=== PATIENT | male | born 1990 | race Hispanic/Latino ===

== ENCOUNTER 2018-03-05 14:28 | Emergency (ER) | payer SELFPAY ==
[2018-03-05] MEDS ORDERED: Ketorolac Tromethamine 60 MG/2 ML VIAL ONE (15:36)
--- NOTE | 2018-03-05 15:58 | RAD ---
CERVICAL SPINE 5 VIEWS: HISTORY: Neck injury. FINDINGS: Reversal of the normal lordotic curvature of the lower cervical spine. Vertebral body heights are ma intained. Mild osteophytosis. No acute fracture or dislocation. Cervicothoracic junction is intact . IMPRESSION: Degenerative changes. No acute osseous abnormalities are demonstrated. POS: [facility]
== END 2018-03-05 16:31 | disposition home or self-care (01) ==
LOC: ERS 14:28
DX: M54.2 Cervicalgia (principal); F17.210 Nicotine dependence, cigarettes, uncomplicated
CPT/HCPCS: 72050; 96372; J1885

== ENCOUNTER 2021-04-13 01:40 | Emergency (ER) | payer SELFPAY | END 2021-04-13 02:16 | disposition home or self-care (01) | LOC: ERS 01:40 | DX: T78.40XA Allergy, unspecified, initial encounter (principal); F17.290 Nicotine dependence, other tobacco product, uncomplicated | CPT/HCPCS: 99282 ==

== ENCOUNTER 2022-12-24 17:49 | Emergency (ER) | payer SELFPAY ==
[2022-12-24] MEDS ORDERED: Ketorolac Tromethamine 30 MG/ML VIAL ONE (19:27)
[2022-12-24] MEDS ORDERED: Boostrix 0.5 ML (Tdap) VIAL (>/=7 yrs of age) ONE (19:27)
== END 2022-12-24 20:12 | disposition home or self-care (01) ==
LOC: ERS 17:49
DX: S51.812A Laceration without foreign body of left forearm, initial encounter (principal); F17.210 Nicotine dependence, cigarettes, uncomplicated; W26.8XXA Contact with other sharp object(s), not elsewhere classified, initial encounter
CPT/HCPCS: 12001; 90471; 90715; 96372; J1885

== ENCOUNTER 2023-01-15 14:03 | Emergency (ER) | payer SELFPAY ==
[2023-01-15] MEDS ORDERED: Lidocaine 1% w/Epinephrine 1:100K 20 ML VIAL ONE (15:25)
[2023-01-15] MEDS ORDERED: Bacitracin 1 PK ONE (16:01)
== END 2023-01-15 16:24 | disposition home or self-care (01) ==
LOC: ERS 14:03
DX: S91.311A Laceration without foreign body, right foot, initial encounter (principal); E78.00 Pure hypercholesterolemia, unspecified; I10 Essential (primary) hypertension; F17.200 Nicotine dependence, unspecified, uncomplicated; W27.0XXA Contact with workbench tool, initial encounter
CPT/HCPCS: 12002